=== PATIENT | male | born 1945 | race Caucasian/White ===

== ENCOUNTER → 2016-10-30 | Outpatient (CLI) | payer MEDICARE | END | disposition home or self-care (01) | LOC: C.RDSM 10:50 | PROVIDERS: ATTEND Physical Medicine & Rehabilitation Sports Medicine | DX: M25.512 Pain in left shoulder (principal) ==

== ENCOUNTER → 2016-12-06 | Outpatient (CLI) | payer MEDICARE ==
--- NOTE | 2016-12-06 15:13 | DIAGNOSTIC IMAGING REPORT ---
MRI OF THE LEFT SHOULDER WITHOUT CONTRAST CLINICAL HISTORY: Left shoulder pain. No recent trauma. COMPARISON STUDY: Left shoulder radiographs October 30, 2016. TECHNIQUE: Utilizing a 1.5 Silvia magnet and dedicated coil, multiplanar, multi echo imaging of the left shoulder was performed without intravenous or intra-articular contrast. FINDINGS: This exam is moderately compromised by motion artifact. There is a moderate-sized left shoulder joint effusion which contains small intra-articular bodies. There signal abnormality within the greater tuberosity. There is a suspected partial thickness tear within the proximal long head of biceps tendon. The posterior superior glenoid labrum is truncated. This suggests a tear. The rotator cuff is suboptimally assessed on this exam. However, there is a suspected high-grade partial-thickness tear of the distal supraspinatus. There is no tendon retraction or significant muscular atrophy. Infraspinatus is grossly intact. There is mild arthritis of the acromioclavicular and glenohumeral joints. IMPRESSION: 1. Exam moderately compromised by motion artifact. 2. High-grade partial-thickness tear of distal supraspinatus. No tendon retraction or muscular atrophy. 3. Moderate sized left shoulder joint effusion which contains small intra-articular bodies. 4. Probable partial thickness tear of the proximal long head of the biceps tendon. 5. Truncated posterior superior glenoid labrum consistent with tear. 6. 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 Electronically signed by: Luis Powell M.D. 12/06/2016 3:12 PM Dictated Date/Time: 12/06/2016 3:05 PM
== END | disposition home or self-care (01) ==
LOC: C.MRI 13:24
PROVIDERS: ATTEND Physical Medicine & Rehabilitation Sports Medicine
DX: M75.102 Unspecified rotator cuff tear or rupture of left shoulder, not specified as traumatic (principal); M25.412 Effusion, left shoulder